=== PATIENT | female | born 1960 | race Caucasian/White ===

== ENCOUNTER 2019-05-07 23:36 | Inpatient (IN) | payer BC, OTHER ==
--- OUTSIDE RECORDS SUMMARY | 2019-05-07 23:38 | XMS REPORT ---
:1960 Author Organization [employer] Care Team Providers Name Role Phone Christen Galloway Provider Role Unavailable Allergies No Known Allergies Problems Problem Type Condition Code Onset Dates Condition Status Problem Osteoarthritis, multiple sites M15.9 Active Problem Hypothyroidism E03.9 Active Problem Osteopenia M85.80 Active Problem Pain in right leg M79.604 Active Problem Pain of left leg M79.605 Active Problem Family history of diabetes mellitus Z83.3 Active Problem Allergic rhinitis J30.9 Active Problem Asthma J45.909 Active Problem Dysuria R30.0 Active Problem Hyperlipidemia E78.5 Active Medications No Known Medications Results No Known Results Summary Purpose [employer]Clinical[employer] Submission
--- OUTSIDE RECORDS SUMMARY | 2019-05-07 23:38 | XMS REPORT ---
:1960 [facility] [address] [place]. [address] [place] [id number] Care Team Providers Name Role Phone Unavailable Unavailable Unavailable Problems This patient has no known problems. Allergies, Adverse Reactions, Alerts This patient has no known allergies or adverse reactions. Medications This patient has no known medications.
--- OUTSIDE RECORDS SUMMARY | 2019-05-07 23:38 | XMS REPORT ---
[...] Medications Results No Known Results Summary Purpose [employer] Submission
[2019-05-08] MEDS ORDERED: NA CHLORIDE 0.9% 2,000 ML ONE (00:22)
[2019-05-08] MEDS ORDERED: CEFTRIAXONE/SWI 1gm 1 GM/10 ML SYR ONE ×2 (00:38→00:48)
[2019-05-08] MEDS ORDERED: IBUPROFEN 200 MG TAB PO ONE (00:38)
[2019-05-08] MEDS ORDERED: ACETAMINOPHEN 500 MG TAB ONE (00:38)
[2019-05-08 00:39] LABS: Absolute Lymphocytes (CBC) 0.7 K/uL (0.7-4.9); Basophils % 0.6 % (0-1.3); Hematocrit 37.7 % (36.0-45.0); Lymphocytes % 10.7 % (15.3-44.8); MPV 10.5 fL (7.6-11.3); RBC Red Blood Cell Count 4.21 M/uL (3.86-4.86)
[2019-05-08 00:41] LABS: Protime INR 0.99
[2019-05-08] MEDS ORDERED: ONDANSETRON 4 MG/2 ML VIAL ONE (00:47)
[2019-05-08 00:54] LABS: ALT/SGPT 31 U/L (12-78); AST/SGOT 27 U/L (15-37); Albumin 4.2 g/dL (3.4-5.0); Alkaline Phosphatase 90 U/L (45-117); BUN Blood Urea Nitrogen 15 mg/dL (7-18); Bicarbonate 27 mmol/L (21-32); Bilirubin Direct < 0.1 mg/dL (0-0.2); Bilirubin Total 0.4 mg/dL (0.2-1.0); CKMB Creatine Kinase MB < 1.0 ng/mL (0.3-3.6); Creatine Phosphokinase 112 U/L (26-192); Glucose Level 115 mg/dL (74-106); Lipase 173 U/L (73-393); Potassium 3.7 mmol/L (3.5-5.1); Protein, Total 7.7 g/dL (6.4-8.2); Sodium Level 140 mmol/L (136-145); Troponin (Emerg Dept Use Only) < 0.02 ng/mL (0.0-0.045)
[2019-05-08] MEDS ORDERED: HYDROCODONE/CHLORPHEN 5 ML/OSYR ONE (01:38)
--- NOTE | 2019-05-08 02:14 | ER ---
Nurse's Notes [facility] Name: Adeline Byrne Age: 58 yrs Sex: Female : 1960 Arrival Date: 05/07/2019 Time: 23:39 Bed 17 Private MD: Diagnosis: Fever, unspecified;Dyspnea;Acute upper respiratory infection, unspecified;Dehydration;Vomiting Presentation: 05/07 23:57 Presenting complaint: Patient states: she started running fever today 102-103 has taken bb tylenol earlier tonight but has a headache, is coughing, has leg pains, and is vomiting, pt saw PCP May 27 and was supposed to start compounded RX of antibiotics and steroid but has not been able to get it filled yet. Transition of care: patient was not received from another setting of care. Onset of symptoms was May 07, 2019. Risk Assessment: Do you want to hurt yourself or someone else? Patient reports no desire to harm self or others. Initial Sepsis Screen: Does the patient meet any 2 criteria? Temp <36.0*C (96.8*F)) or > 38.3*C (100.9*F). HR > 90 bpm. Yes Does the patient have a suspected source of infection? Yes: Other: sinus infection. Care prior to arrival: None. 23:57 Method Of Arrival: Ambulatory bb 23:57 Acuity: ISIS 3 bb Historical: - Allergies: 05/08 00:06 Theophylline; bb 00:06 fluoroquinolones; bb - Home Meds: 00:06 levothyroxine 25 mcg tab 1 tab once daily [Active]; pantoprazole 40 mg oral TbEC 1 tab bb once daily [Active]; Claritin Oral [Active]; - PMHx: 00:06 Hernia; High Cholesterol; Hypothyroidism; bb - PSHx: 00:06 Hysterectomy; back surgery; sinus surgery x 4; left hip replacement; bb - Immunization history:: Adult Immunizations up to date. - Coronavirus screen:: The patient has NOT traveled to [place], [place], or [place] in the past 14 days. - Social history:: Smoking status: Patient denies any tobacco usage or history of. - Family history:: not pertinent. - Ebola Screening: : No symptoms or risks identified at this time. Screenin:16 Abuse screen: Denies threats or abuse. Nutritional screening: No deficits noted. fu Tuberculosis screening: No symptoms or risk factors identified. Fall Risk None identified. Assessment: 05/07 22:57 General: Appears distressed, uncomfortable, ill, Behavior is anxious, Reports chills fu for fever for feeling ill for fatigue for 1-2 days. Pain: Complains of pain in generalized pain Pain currently is 8 out of 10 on a pain scale. Neuro: Level of Consciousness is awake, alert, obeys commands, Oriented to person, place, time, situation, Shuttle Veneering Supervisor are equal bilaterally Moves all extremities. Reports headache weakness. Cardiovascular: Heart tones S1 S2. Respiratory: Reports cough that is non-productive, dry, hacking. GI: No signs and/or symptoms were reported involving the gastrointestinal system. : No signs and/or symptoms were reported regarding the genitourinary system. Musculoskeletal: No signs and/or symptoms reported regarding the musculoskeletal system. 05/08 00:00 EENT: Reports nasal discharge that is watery. fu 01:00 Reassessment: No changes from previously documented assessment. Patient and/or family fu updated on plan of care and expected duration. Pain level reassessed. Patient is alert, oriented x 3, equal unlabored respirations, skin warm/dry/pink. patient still complaining of cough and headache. 03:19 Reassessment: Patient and/or family updated on plan of care and expected duration. Pain fu level reassessed. Patient is alert, oriented x 3, equal unlabored respirations, skin warm/dry/pink. Dr. Tay in patient's room talking to the patient. Vital Signs: 00:06 BP 124 / 73; Pulse 114; Resp 18 S; Temp 103(O); Pulse Ox 96% on R/A; Weight 64.41 kg bb (R); Height 5 ft. 6 in. (167.64 cm) (R); Pain 8/10; 01:30 BP 109 / 57; Pulse 101; Resp 21; Temp 101.5; Pulse Ox 94% on R/A; Pain 7/10; fu 02:30 BP 102 / 54; Pulse 105; Resp 24; Pulse Ox 98% on R/A; fu 03:10 Temp 100.6(O); bb 00:06 Body Mass Index 22.92 (64.41 kg, 167.64 cm) bb ED Course: 05/07 23:39 Patient arrived in ED. [id number] 23:55 Selvin Murray MD is Attending Physician. [facility] 05/08 00:00 Triage completed. bb 00:06 Arm band placed on Patient placed in an exam room, on a stretcher, on pulse oximetry. bb Family accompanied patient. 00:30 Abebe Fox RN is Primary Nurse. fu 01:08 Chest Single View XRAY In Process Unspecified. EDMS 01:08 First set of blood cultures drawn by ED staff. Inserted saline lock: 18 gauge in left fu antecubital area, using aseptic technique. Blood collected. 02:11 Jacek Tay is Hospitalizing Provider. lon 03:17 Patient has correct armband on for positive identification. Bed in low position. Call fu light in reach. Side rails up X 1. 03:17 No provider procedures requiring assistance completed. fu 04:27 Patient admitted, IV remains in place. rv Administered Medications: 00:15 Drug: NS 0.9% (30 ml/kg) 30 ml/kg Route: IV; Rate: bolus; Site: left antecubital; fu 00:40 Drug: Rocephin 2 grams Route: IV; Rate: per protocol; Site: left antecubital; fu 00:42 Drug: Tylenol 1000 mg Route: PO; fu 00:42 Drug: Motrin 600 mg Route: PO; fu 01:38 Drug: Tussionex Pennkinetic ER 5 ml Route: PO; fu 01:39 Drug: Zofran 4 mg Route: IVP; Site: left antecubital; fu 02:27 Drug: Xopenex 1.25 mg Route: Inhalation; fu 02:27 Drug: AtroVENT Aerosol 0.5 mg Route: Inhalation; fu 02:31 Drug: Solu-CORTEF 100 mg Route: IVP; Site: left antecubital; fu 03:13 Drug: morphine 4 mg {Note: RASS 0.} Route: IVP; Site: left antecubital; rv Outcome: 02:12 Decision to Hospitalize by Provider. lon 04:26 Admitted to Med/surg accompanied by nurse, via wheelchair, room 229, with chart, Report rv called to ESTEBAN HUANG 04:26 Condition: good 04:26 Discharge instructions given to patient, family, Instructed on the need for admit, Demonstrated understanding of instructions. 04:27 Patient left the ED. rv Signatures: Dispatcher [employer] EDSelvin Diamond MD MD cha Ballard, Brenda RN Abebe Berger RN RN fu Vicente, Ronaldo, RN RN rv Gutierrez, Jessica [email or web address] Corrections: (The following items were deleted from the chart) 03:12 05/07 22:57 EENT: burak sumner
--- NOTE | 2019-05-08 02:15 | EDPHYS ---
Physician Documentation [facility] Name: Adeline Byrne Age: 58 yrs Sex: Female : 1960 Arrival Date: 05/07/2019 Time: 23:39 Bed 17 Private MD: ED Physician Selvin Murray HPI: 05/08 00:14 This 58 yrs old Female presents to ER via Ambulatory with complaints of Flu lon Symptoms. 00:14 The patient or guardian reports cough, difficulty breathing. Onset: The lon symptoms/episode began/occurred 3 day(s) ago. Modifying factors: The symptoms are alleviated by nothing. the symptoms are aggravated by nothing. The patient or guardian reports flu symptoms, arthralgias, low-grade fever, myalgias. Severity of symptoms: At their worst the symptoms were mild, moderate, in the emergency department the symptoms are unchanged. Associated signs and symptoms: The patient has no apparent associated signs or symptoms. Modifying factors: The symptoms are alleviated by nothing, the symptoms are aggravated by nothing. Severity of symptoms: At their worst the symptoms were moderate in the emergency department the symptoms are unchanged. Historical: - Allergies: 00:06 Theophylline; bb 00:06 fluoroquinolones; bb - Home Meds: 00:06 levothyroxine 25 mcg tab 1 tab once daily [Active]; pantoprazole 40 mg oral TbEC 1 tab bb once daily [Active]; Claritin Oral [Active]; - PMHx: 00:06 Hernia; High Cholesterol; Hypothyroidism; bb - PSHx: 00:06 Hysterectomy; back surgery; sinus surgery x 4; left hip replacement; bb - Immunization history:: Adult Immunizations up to date. - Coronavirus screen:: The patient has NOT traveled to [place], [place], or [place] in the past 14 days. - Social history:: Smoking status: Patient denies any tobacco usage or history of. - Family history:: not pertinent. - Ebola Screening: : No symptoms or risks identified at this time. ROS: 00:14 Eyes: Negative for injury, pain, redness, and discharge, Neck: Negative for injury, lon pain, and swelling, Cardiovascular: Negative for chest pain, palpitations, and edema, Abdomen/GI: Negative for abdominal pain, nausea, vomiting, diarrhea, and constipation, Back: Negative for injury and pain, : Negative for injury, bleeding, discharge, and swelling, MS/Extremity: Negative for injury and deformity, Skin: Negative for injury, rash, and discoloration, Neuro: Negative for headache, weakness, numbness, tingling, and seizure, Psych: Negative for depression, anxiety, suicide ideation, homicidal ideation, and hallucinations, Allergy/Immunology: Negative for hives, rash, and allergies, Endocrine: Negative for neck swelling, polydipsia, polyuria, polyphagia, and marked weight changes, Hematologic/Lymphatic: Negative for swollen nodes, abnormal bleeding, and unusual bruising. 00:14 Constitutional: Positive for body aches, chills, fatigue, fever. 00:14 Neck: Negative for pain with movement, pain at rest. 00:14 Respiratory: Positive for cough, with no reported sputum. Exam: 00:14 Head/Face: Normocephalic, atraumatic. Eyes: Pupils equal round and reactive to light, lon extra-ocular motions intact. Lids and lashes normal. Conjunctiva and sclera are non-icteric and not injected. Cornea within normal limits. Periorbital areas with no swelling, redness, or edema. ENT: Nares patent. No nasal discharge, no septal abnormalities noted. Tympanic membranes are normal and external auditory canals are clear. Oropharynx with no redness, swelling, or masses, exudates, or evidence of obstruction, uvula midline. Mucous membranes moist. Neck: Trachea midline, no thyromegaly or masses palpated, and no cervical lymphadenopathy. Supple, full range of motion without nuchal rigidity, or vertebral point tenderness. No Meningismus. Chest/axilla: Normal chest wall appearance and motion. Nontender with no deformity. No lesions are appreciated. Abdomen/GI: Soft, non-tender, with normal bowel sounds. No distension or tympany. No guarding or rebound. No evidence of tenderness throughout. Back: No spinal tenderness. No costovertebral tenderness. Full range of motion. Female : Normal external genitalia. Skin: Warm, dry with normal turgor. Normal color with no rashes, no lesions, and no evidence of cellulitis. MS/ Extremity: Pulses equal, no cyanosis. Neurovascular intact. Full, normal range of motion. Neuro: Awake and alert, GCS 15, oriented to person, place, time, and situation. Cranial nerves II-XII grossly intact. Motor strength 5/5 in all extremities. Sensory grossly intact. Cerebellar exam normal. Normal gait. Psych: Awake, alert, with orientation to person, place and time. Behavior, mood, and affect are within normal limits. 00:14 Constitutional: The patient appears febrile. 00:14 Cardiovascular: Rate: tachycardic, Rhythm: regular, Pulses: Pulses are 4+ in bilateral radial, brachial, femoral, popliteal, posterior tibial and and dorsalis pedis arteries.. Heart sounds: normal, Edema: is not appreciated, JVD: is not appreciated. 00:17 Neck: ROM/movement: is normal, no acute changes, pain, is not appreciated, limited lon range of motion, is not appreciated, Meningeal signs: are not present, Kernig's sign is negative, Brudzinski's sign is negative. 01:37 Neck: ROM/movement: nuchal rigidity, is not appreciated. [facility] Vital Signs: 00:06 BP 124 / 73; Pulse 114; Resp 18 S; Temp 103(O); Pulse Ox 96% on R/A; Weight 64.41 kg bb (R); Height 5 ft. 6 in. (167.64 cm) (R); Pain 8/10; 01:30 BP 109 / 57; Pulse 101; Resp 21; Temp 101.5; Pulse Ox 94% on R/A; Pain 7/10; fu 02:30 BP 102 / 54; Pulse 105; Resp 24; Pulse Ox 98% on R/A; fu 03:10 Temp 100.6(O); bb 00:06 Body Mass Index 22.92 (64.41 kg, 167.64 cm) MDM: 05/07 23:55 Patient medically screened. [facility] 05/08 00:17 Data reviewed: vital signs, nurses notes, lab test result(s), EKG, radiologic studies, [facility] plain films. 05/08 00:12 Order name: Urine Culture [facility] 05/08 00:12 Order name: Basic Metabolic Panel; Complete Time: :08 [facility] 05/08 00:12 Order name: Blood Culture Adult (2) [facility] 05/08 00:12 Order name: CBC with Diff; Complete Time: 01:08 [facility] 05/08 00:12 Order name: Ckmb; Complete Time: :08 [facility] 05/08 00:12 Order name: CPK; Complete Time: : [facility] 05/08 00:12 Order name: Lactate; Complete Time: :08 [facility] 05/08 00:12 Order name: LFT's; Complete Time: : [facility] 05/08 00:12 Order name: Lipase; Complete Time: :08 [facility] 05/08 00:12 Order name: Procalcitonin; Complete Time: 01:34 [facility] 05/08 00:12 Order name: Protime (+inr); Complete Time: :08 [facility] 05/08 00:12 Order name: Ptt, Activated; Complete Time: 01:08 [facility] 05/08 00:12 Order name: Troponin (emerg Dept Use Only); Complete Time: 01:08 [facility] 05/08 00:12 Order name: Urine Microscopic Only [facility] 05/08 00:12 Order name: Chest Single View XRAY [facility] 05/08 00:14 Order name: Strep; Complete Time: 01:34 [facility] 05/08 00:14 Order name: Flu; Complete Time: 01:34 [facility] 05/08 01:12 Order name: Throat Culture [facility] 05/08 03:11 Order name: CT Facial Bones W/ Con \T\ Mpr [facility] 05/08 00:12 Order name: Accucheck; Complete Time: 03:05 [facility] 05/08 00:12 Order name: Cardiac monitoring; Complete Time: :59 [facility] 05/08 00:12 Order name: EKG - Nurse/Tech; Complete Time: 02:32 [facility] 05/08 00:12 Order name: IV Saline Lock - Large Bore; Complete Time: 01:59 [facility] 05/08 00:12 Order name: Labs collected and sent; Complete Time: :59 [facility] 05/08 00:12 Order name: O2 Per Protocol; Complete Time: 01:59 [facility] 05/08 00:12 Order name: O2 Sat Monitoring; Complete Time: 02:00 [facility] Administered Medications: 00:15 Drug: NS 0.9% (30 ml/kg) 30 ml/kg Route: IV; Rate: bolus; Site: left antecubital; fu 00:40 Drug: Rocephin 2 grams Route: IV; Rate: per protocol; Site: left antecubital; fu 00:42 Drug: Tylenol 1000 mg Route: PO; fu 00:42 Drug: Motrin 600 mg Route: PO; fu 01:38 Drug: Tussionex Pennkinetic ER 5 ml Route: PO; fu 01:39 Drug: Zofran 4 mg Route: IVP; Site: left antecubital; fu 02:27 Drug: Xopenex 1.25 mg Route: Inhalation; fu 02:27 Drug: AtroVENT Aerosol 0.5 mg Route: Inhalation; fu 02:31 Drug: Solu-CORTEF 100 mg Route: IVP; Site: left antecubital; fu 03:13 Drug: morphine 4 mg {Note: RASS 0.} Route: IVP; Site: left antecubital; rv Disposition: 05/08/19 02:12 Hospitalization ordered by Jacek Tay for Inpatient Admission. Preliminary diagnosis are Fever, unspecified, Dyspnea, Acute upper respiratory infection, unspecified, Dehydration, Vomiting. - Bed requested for Telemetry/MedSurg (Inpatient). - Status is Inpatient Admission. rv - Condition is Fair. - Problem is new. - Symptoms have improved. Signatures: Dispatcher [employer] EDMS Selvin Murray MD MD cha Ballard, Brenda RN Siena Seymour RN RN Abebe Fox, SAL UHANG fu Obinna Hernandez RN RN rv Corrections: (The following items were deleted from the chart) 02:12 02:12 Hospitalization Ordered by Jacek Tay for Inpatient Admission. Preliminary [facility] diagnosis is Fever, unspecified; Dyspnea; Acute upper respiratory infection, unspecified; Dehydration. Bed requested for Telemetry/MedSurg (Inpatient). Status is Inpatient Admission. Condition is Fair. Problem is new. Symptoms have improved. [facility] 03:55 02:12 05/08/2019 02:12 Hospitalization Ordered by Jacek Tay for Inpatient cg Admission. Preliminary diagnosis is Fever, unspecified; Dyspnea; Acute upper respiratory infection, unspecified; Dehydration; Vomiting. Bed requested for Telemetry/MedSurg (Inpatient). Status is Inpatient Admission. Condition is Fair. Problem is new. Symptoms have improved. [facility] 04:27 03:55 05/08/2019 02:12 Hospitalization Ordered by Jacek Tay for Inpatient rv Admission. Preliminary diagnosis is Fever, unspecified; Dyspnea; Acute upper respiratory infection, unspecified; Dehydration; Vomiting. Bed requested for Telemetry/MedSurg (Inpatient). Status is Inpatient Admission. Condition is Fair. Problem is new. Symptoms have improved. cg
[2019-05-08] MEDS ORDERED: HYDROCORTISONE SUC 100 MG INJ ONE (02:25)
[2019-05-08] MEDS ORDERED: LEVALBUTEROL 1.25 MG/3 ML NEB ONE (02:25)
[2019-05-08] MEDS ORDERED: IPRATROPIUM BROM 0.5MG/2.5ML ONE (02:25)
[2019-05-08] MEDS ORDERED: MORPHINE 4 MG/ML SYR ONE (03:13)
--- NOTE | 2019-05-08 03:42 | P.HP ---
Certification for Inpatient Patient admitted to: Observation With expected LOS: <2 Midnights Practitioner: I am a practitioner with admitting privileges, knowledge of patient current condition, hospital course, and medical plan of care. Services: Services provided to patient in accordance with Admission requirements found in Title 42 Section 412.3 of the Code of Federal Regulations Patient History Date of Service: 05/08/19 Reason for admission: Fever and headache History of Present Illness: 58-year-old woman with a past medical history of hypothyroidism, GERD and hypercholesteremia presented to the emergency department with a complaint of fever, headache and cough of about 3 days duration. Cough is associated with nasal congestion, nasal stuffiness, and diarrhea. Patient report she has sinusitis, has been diagnosed with Pseudomonas infection in the sinus and she is supposed to start antibiotic for the infection. Fever up to 103 recorded in the ED. She was complaining of severe headache. CBC, no leukocytosis. Chest x -ray shows no acute disease. She tested negative for influenza and rapid strep B. I suspect acute viral syndrome causing patient's symptoms. She is placed under observation for further management. Allergies theophylline Allergy (Verified 05/08/19 05:03) feels sick fluoroquinolones Allergy (Uncoded 05/08/19 05:03) feels sick Home Medications: Levothyroxine [Synthroid*] 1 tab PO DAILY 05/08/19 Loratadine [Claritin*] 1 tab PO DAILY 05/08/19 Pantoprazole [Protonix Tab*] 1 tab PO DAILY 05/08/19 - Past Medical/Surgical History -: Hypothyroidism -: Hypercholesteremia - Family History Family History: Reviewed- Non-Contributory - Social History Alcohol use: No CD- Drugs: No Place of Residence: Home Review of Systems 10-point ROS is otherwise unremarkable Physical Examination - Physical Exam General: Alert, In no apparent distress, Oriented x3 HEENT: Normocephalic, Mucous membr. moist/pink, Sclerae nonicteric Neck: Supple, JVD not distended Respiratory: Clear to auscultation bilaterally, Normal air movement Cardiovascular: No edema, Regular rate/rhythm, Normal S1 S2 Capillary refill: <2 Seconds Gastrointestinal: Normal bowel sounds, Soft and benign, Non-distended, No tenderness Musculoskeletal: No swelling, No erythema Integumentary: No rashes Neurological: Normal speech, Normal strength at 5/5 x4 extr - Studies Laboratory Data (last 24 hrs) 05/08/19 00:17: PT 11.7, INR 0.99, APTT 32.4 05/08/19 00:09: WBC 6.1, Hgb 12.7, Hct 37.7, Plt Count 202 05/08/19 00:09: Sodium 140, Potassium 3.7, BUN 15, Creatinine 1.06, Glucose 115 H, Total Bilirubin 0.4, AST 27, ALT 31, Alkaline Phosphatase 90, Lipase 173 Microbiology Data (last 24 hrs): 05/08/19 00:45 Nasopharnyx Influenza Type A Antigen Screen - Final 05/08/19 00:45 Nasopharnyx Influenza Type B Antigen Screen - Final 05/08/19 00:45 Throat Group A Streptococcus Rapid Screen - Final Assessment and Plan - Problems (Diagnosis) (1) Acute viral syndrome Current Visit: Yes Status: Acute (2) Sinusitis Current Visit: Yes Status: Acute (3) Hypothyroidism Current Visit: Yes Status: Acute - Plan Place patient under observation. Supportive measures with IV hydration Pain management as needed Empiric antibiotics to cover Pseudomonas and atypical pneumonia. Will add Tamiflu Follow blood cultures. - Advance Directives Does patient have a Living Will: No Does patient have a Durable POA for Healthcare: No
[2019-05-08] MEDS ORDERED: ACETAMINOPHEN 500 MG TAB PO PRN (04:15)
[2019-05-08] MEDS ORDERED: MORPHINE 2 MG/ML SYR IV PRN (04:15)
[2019-05-08] MEDS ORDERED: ONDANSETRON 4 MG/2 ML VIAL IV PRN (04:15)
[2019-05-08] MEDS: NA CHLORIDE 0.9% 1,000 ML IV SCH ×2 (04:45→16:44)
[2019-05-08 04:53] VITALS: BMI 23.6
[2019-05-08] MEDS: ENOXAPARIN 40 MG/0.4 ML SQ SCH (09:00)
[2019-05-08] MEDS ORDERED: CEFEPIME 1 GM/VIAL IV SCH (09:00)
[2019-05-08] MEDS ORDERED: POTASSIUM CL SA 10 MEQ TAB PO ONE (09:00)
[2019-05-08] MEDS: CEFEPIME/SWI 1gm 10 ML IVP SCH ×2 (09:26→20:42)
[2019-05-08] MEDS: AZITHROMYCIN IV 500 MG in NA CHLORIDE 0.9% 250 ML IVPB SCH (09:26)
[2019-05-08] MEDS: OSELTAMIVIR 75 MG CAP PO SCH ×2 (09:27→20:42)
--- NOTE | 2019-05-08 11:10 | RAD REPORT ---
EXAM DESCRIPTION: CT - Facial Bones W/ Mpr - 05/08/2019 6:14 am CLINICAL HISTORY: 58-year-old female with fever and facial pain. TECHNIQUE: Axial CT of the facial bones was performed without intravenous contrast with sagittal and coronal reformatted images. The CT study is performed according to ALARA (as low as reasonably achie vable) or ALARA/IMAGE GENTLY, with automatic adjustment of mA and/or kV according to patient size. Performed on: 05/08/2019 at 4:44 AM Comparison: No prior studies were available for comparison.. FINDINGS: There are remote postsurgical changes of the paranasal sinuses consistent with bilateral n belinda antral windows. There has been partial bilateral ethmoidectomy and right middle turbinectomy. Th e uncinate processes appear surgically absent. There is trace mucosal thickening along the inferior r ight frontal sinus and trace mucosal thickening of the remaining ethmoid air cells. There is a sharply marginated lytic bone lesion with a thin sclerotic rim within the right hemimaxill a adjacent to the roots of the right maxillary second molar. There is discontinuity of the roof of th is lesion with extension of soft tissue into the inferior aspect of the right maxillary sinus. It is unclear if this represents an acute or chronic process. The thin sclerotic peripheral rim suggests th is is chronic in nature. There is no evidence of acute facial bone fracture. The orbital contents are unremarkable. The globes are intact bilaterally and appear symmetric. The intraconal fat is preserved. The extraocular muscle s and optic nerves appear symmetric. No focal soft tissue abnormalities are appreciated. The mastoid air cells and middle ear cavities are clear. The temporomandibular joints are intact. Both globes are intact and are symmetric. The extraocular muscles and optic nerves are symmetric. T he intraconal fat is preserved. There is no evidence of intraorbital emphysema. No focal soft tissue abnormalities are appreciated. No pathologic lymphadenopathy is seen. IMPRESSION: 1. Remote postsurgical changes of the paranasal sinuses as described above. 2. Sharply marginated lytic bone lesion with a thin sclerotic peripheral rim in the right hemimaxilla adjacent to the roots of the right maxillary second molar. There is discontinuity of the roof of thi s lesion with extension of soft tissue into the inferior aspect of the right maxillary sinus. Althoug h it is unclear if this represents an acute or chronic process, the presence of a thin sclerotic damion pheral rim suggest this is likely chronic in nature. Correlate clinically for focal pain in this shailesh on. 3. Trace mucosal thickening of the paranasal sinuses as described above. Electronically signed by: Anushka Melgar DO 05/08/2019 5:50 AM TELEMETRY MONITOR Due to temporary technical issues with the PACS/Fluency reporting system, reports are being signed by the in house radiologist as a courtesy to ensure prompt reporting. The interpreting radiologist is f ully responsible for the content of the report.
--- NOTE | 2019-05-08 12:48 | RAD REPORT ---
EXAM DESCRIPTION: Rickey Single View05/08/2019 1:07 am CLINICAL HISTORY: cough COMPARISON: 2016 FINDINGS: The lungs appear clear of acute infiltrate. The heart is normal size IMPRESSION: No acute abnormalities displayed
[2019-05-08] MEDS: IBUPROFEN 400 MG TAB PO PRN ×2 (14:15→19:47)
--- NOTE | 2019-05-08 17:17 | PN ---
Date of Progress Note: 05/08/2019 Subjective: Patient seen and examined. Chart reviewed and case discussed with RN. Patient appears acutely ill, in some mild distress, complaining of tenderness and soreness and headache in maxillary sinus on the right side. Has been afebrile overnight. Did have high fevers to 103 prior to admission. Medication List: Reviewed. Physical Examination: Vital Signs: Temperature 98, heart rate 89, blood pressure 103/55, respirations 20, T-max was 103 at midnight. General; Awake, alert, oriented x3. Ill appearing female. HEENT: NC/AT, PERRLA, EOMI, MMM, oropharynx is erythematous, normal dentition. Tenderness to palpation right maxillary sinus. CV; S1,S2, RRR Resp; CTA b/l no wheezing. Upper airway noise GI; Abdomen soft, NT/ND, + BS Ext no c/c/edema neuro non focal Laboratory Data: TSH is 0.752. Cultures are pending. Influenza screen negative. Group A strep rapid screen also negative. Throat culture is pending. CT facial sinus shows remote postsurgical changes of the paranasal sinuses as described above, sharply marginated lytic bone lesion with a thin sclerotic peripheral rim in the right lucia-maxilla adjacent to the roots of the right maxillary second molar, discontinuity of the roof of this lesion with extension of soft tissue into the inferior aspect of the right maxillary sinus, although unclear if represents acute on chronic process. Presence of a thin sclerotic peripheral rim suggests this is likely chronic in nature. Trace mucosal thickening of the paranasal sinuses as described above. No acute fractures. Assessment And Plan: A 58-year-old female with: 1. Acute viral syndrome. Patient is on Tamiflu prophylactically. 2. Acute on chronic sinusitis. Patient has had multiple infections of the sinus, has had multiple surgeries, was recently diagnosed with Pseudomonas. continue abx. ENT follow up 3. Hypothyroidism. We will continue Synthroid. TSH is normal. Plan: 1. We will continue IV antibiotics, IV fluids, Tamiflu. 2. DVT prophylaxis with Lovenox. Supportive care. Discharge once cultures are negative and patient is afebrile for greater than 24 hours. ADDENDUM; Still spiking high fevers. Increased cough, sputum production and sinus pain, pressure along with headache. Will need continued IV antibiotic treatment for pseudomonas infection. SA/MODL Voice ID: [id number] Report ID: [id number] FAMILIA
[2019-05-08] MEDS ORDERED: ACETAMINOPHEN 325 MG TABLET PO ONE (21:02)
[2019-05-08] MEDS ORDERED: ACETAMINOPHEN 500 MG TAB PO ONE (21:02)
[2019-05-09] MEDS: NA CHLORIDE 0.9% 1,000 ML IV SCH ×2 (03:12→15:46)
[2019-05-09] MEDS: LEVOTHYROXINE SOD 0.075 MG TAB PO SCH (05:54)
[2019-05-09 06:42] LABS: Absolute Lymphocytes (CBC) 1.2 K/uL (0.7-4.9); Basophils % 0.9 % (0-1.3); Hematocrit 29.5 % (36.0-45.0); Lymphocytes % 37.5 % (15.3-44.8); MPV 10.3 fL (7.6-11.3); RBC Red Blood Cell Count 3.25 M/uL (3.86-4.86)
[2019-05-09 07:06] LABS: Magnesium 2.1 mg/dL (1.8-2.4); Phosphorus 2.6 mg/dL (2.5-4.9); Potassium 4.1 mmol/L (3.5-5.1)
[2019-05-09] MEDS: PANTOPRAZOLE 40MG TABLET PO SCH (08:04)
[2019-05-09] MEDS: CEFEPIME/SWI 1gm 10 ML IVP SCH ×2 (08:04→20:16)
[2019-05-09] MEDS: OSELTAMIVIR 75 MG CAP PO SCH ×2 (08:04→20:13)
[2019-05-09] MEDS: LORATADINE 10 MG TAB PO SCH (08:04)
[2019-05-09] MEDS: AZITHROMYCIN IV 500 MG in NA CHLORIDE 0.9% 250 ML IVPB SCH (08:05)
[2019-05-09] MEDS: ENOXAPARIN 40 MG/0.4 ML SQ SCH (08:05)
[2019-05-09] MEDS: ACETAMINOPHEN 500 MG TAB PO PRN (09:34)
[2019-05-09] MEDS: MONTELUKAST 10 MG TAB PO SCH (11:56)
--- NOTE | 2019-05-09 13:38 | PN ---
Date of Progress Note: 05/09/2019 Subjective: Patient is seen and examined. Chart reviewed and case discussed with RN. Patient still having high fevers as high as 102.7 last night, having increased sputum production and continued max illary sinus pressure, pain, and headache. Medications: List reviewed. Physical Examination: Vital Signs: T current is 100.4, T-max was 102.7, heart rate 92, blood pressure 121/56, respirations 20, O2 of 95% on room air. General: Awake, alert, oriented x3, ill-appearing female, in mild distress. CV: S1, S2. Regular rate and rhythm. Peripheral pulses present. Respiratory: Moving air well bilaterally. No wheezing or stridor. Gastrointestinal: Abdomen is soft, nontender, nondistended. Positive bowel sounds. Extremities: No clubbing, cyanosis, or edema. Neurologic: Nonfocal. HEENT: Normocephalic, atraumatic. PERRLA. EOMI. Moist mucous membranes. Oropharynx is erythemato us. Patient has tenderness to palpation in the right maxillary sinus. Laboratory Data: Sodium 143, potassium 4.1, chloride 113, CO2 of 27, BUN 7, creatinine 0.75, glucose 95, calcium 8.3, phosphorus 2.6, magnesium 2.1. WBC 3.3, H and H 10 and 29.5, platelets 147. Assessment: 58-year-old female with: 1.Sepsis. Patient has elevated temperature of 102.7, has leukopenia and thrombocytopenia. Source o f infection is Pseudomonas aeruginosa from sinus culture. We will continue on IV antibiotics. Ree del angel had her lab report with her. Sensitivities were noted, sensitive to cefepime. Consider ENT evalu ation and CT scan. Patient's sinuses were reviewed yesterday, does show acute process in the inferio r aspect of the right maxillary sinus. 2.Acute viral syndrome. Continue Tamiflu prophylactically. 3.Hypothyroidism. Continue Synthroid and DVT prophylaxis with Lovenox. Plan: Patient is now beginning to develop sepsis, is leukopenic, has high fevers, will need to be mo nitored closely in order to prevent febrile neutropenia. Infectious Disease consultation. ENT consu ltation once available. Follow up on culture results. /HERBIE Voice ID: [id number] Report ID: [id number]
[2019-05-09] MEDS: IBUPROFEN 400 MG TAB PO PRN (18:23)
[2019-05-10] MEDS: NA CHLORIDE 0.9% 1,000 ML IV SCH ×3 (03:32→16:17)
[2019-05-10] MEDS: LEVOTHYROXINE SOD 0.075 MG TAB PO SCH (05:53)
[2019-05-10 06:12] LABS: Absolute Lymphocytes (CBC) 1.4 K/uL (0.7-4.9); Basophils % 1.2 % (0-1.3); Hematocrit 31.9 % (36.0-45.0); Lymphocytes % 54.5 % (15.3-44.8); MPV 10.4 fL (7.6-11.3); RBC Red Blood Cell Count 3.49 M/uL (3.86-4.86)
[2019-05-10 06:34] LABS: ALT/SGPT 27 U/L (12-78); AST/SGOT 32 U/L (15-37); Alkaline Phosphatase 65 U/L (45-117); BUN Blood Urea Nitrogen 6 mg/dL (7-18); Bicarbonate 30 mmol/L (21-32); Bilirubin Total 0.2 mg/dL (0.2-1.0); Glucose Level 83 mg/dL (74-106); Potassium 3.7 mmol/L (3.5-5.1); Protein, Total 6.3 g/dL (6.4-8.2); Sodium Level 143 mmol/L (136-145)
[2019-05-10 07:13] LABS: Blood Morphology Comment NOT SEEN (NOT SEEN); Platelet Estimate DECR; Urine White Blood Cell Casts OK
[2019-05-10] MEDS ORDERED: POTASSIUM CL SA 10 MEQ TAB PO ONE (09:00)
[2019-05-10] MEDS: ENOXAPARIN 40 MG/0.4 ML SQ SCH (09:00)
[2019-05-10] MEDS: LORATADINE 10 MG TAB PO SCH (09:00)
[2019-05-10] MEDS: OSELTAMIVIR 75 MG CAP PO SCH ×2 (09:00→22:23)
[2019-05-10] MEDS: PANTOPRAZOLE 40MG TABLET PO SCH (09:00)
[2019-05-10] MEDS: CEFEPIME/SWI 1gm 10 ML IVP SCH ×2 (09:24→22:23)
[2019-05-10] MEDS: MONTELUKAST 10 MG TAB PO SCH ×2 (09:25→10:32)
--- NOTE | 2019-05-10 09:26 | EKG ---
Test Date: 2019-05-08 Test Time: 02:11:05 Entertainer & Comic: CHRISTIANO MEASUREMENT RESULTS: Intervals: Rate: 104 MO: 150 QRSD: 78 QT: 336 QTc: 441 [place]: P: 59 MO: 150 QRS: 20 T: 57 INTERPRETIVE STATEMENTS: Sinus tachycardia Low voltage QRS Nonspecific ST abnormality Abnormal ECG Compared to ECG 09/17/2016 12:36:52 Low QRS voltage now present ST (T wave) deviation now present Sinus rhythm no longer present Electronically Signed On 05-10-19 09:25:39 [employer]IN[employer] by Ton Mendez
[2019-05-10] MEDS: AZITHROMYCIN IV 500 MG in NA CHLORIDE 0.9% 250 ML IVPB SCH (10:32)
--- NOTE | 2019-05-10 15:16 | PN ---
Date of Progress Note: 05/10/2019 Subjective: Patient seen and examined. Chart reviewed and case discussed with RN. Treatment plan e xplained. All questions answered. Patient somewhat upset and hearing the news about her lab results . Overall, clinically is significantly improved. Last fever was yesterday at 9:30 a.m. Medications list reviewed. Physical Examination: Vital Signs: Temperature 98.6, heart rate 73, blood pressure 127/63, respirations 15, O2 96% on room air. General: Awake, alert, oriented x3, in some mild distress. CV: S1, S2. Regular rate and rhythm. Respiratory: Moving air well bilaterally. Some upper airway noise heard. Gastrointestinal: Abdomen is soft, nontender, nondistended. Positive bowel sounds. Extremities: No clubbing, cyanosis, or edema. Neurologic: Nonfocal. HEENT: Normocephalic, atraumatic. PERRLA. EOMI. Moist mucous membranes. Erythema of the orophary nx is present. Patient has tenderness to palpation in the right maxillary sinus. Laboratory Data: Sodium 143, potassium 3.7, chloride 109, CO2 of 30, BUN 6, creatinine 0.67, glucose 83, calcium 8.4, albumin 3. WBC 2.6, H and H 10.7 and 31.9, platelets 142, neutrophils 30%, absolut e neutrophil count is 800. Blood cultures, no growth to date. Throat culture growing normal upper r espiratory laura. Assessment: A 58-year-old female with: 1.Sepsis, currently with leukopenia, has now been afebrile for at least 24 hours. Continue with IV antibiotics. We will obtain medical records from her ENT office for culture that shows Pseudomonas i nfection. ID has been consulted. 2.Neutropenia. White blood cell count continues to trend down and currently the patient has less th an 1000 neutrophils. We will need to monitor closely as patient has febrile neutropenia. 3.Acute viral syndrome. Continue Tamiflu prophylactically. 4.Hypothyroidism. Continue Synthroid. 5.Deep vein thrombosis prophylaxis, Lovenox. Plan: ID consultation. The patient can follow up with her ENT as an outpatient. Discharge once cli nically improved and neutropenia is resolved. SA/MODL Voice ID: [id number] Report ID: [id number]
--- NOTE | 2019-05-10 19:43 | CON ---
History Of Present Illness: Patient is a 58-year-old female with significant history of hypothyroidi sm, chronic sinus problems, GERD, hypercholesterolemia, presented to the emergency room with fever of 103, headaches, cough of 3 days. Patient was recently treated with Augmentin for 2 weeks for sinus infection. Her cultures from the sinuses shows patient has pseudomonas infection. Patient is curren tly being treated with the cefepime and Zithromax. Denies any other problem. Past Medical History: Chronic sinusitis; hypothyroidism; gastroesophageal reflux disease; hyperchole sterolemia; osteoarthritis, causing her to have 3 surgeries to the left hip, eventually hip replaceme nt in 2017; sinus surgery also done recently. Family History: Noncontributory. Medications: Cefepime and Zithromax. See MAR for other medications. Allergies: THEOPHYLLINE AND LEVAQUIN. Review of Systems: A 10-point review was performed. Physical Examination: General: This is a 58-year-old female, very pleasant to talk to, not in any acute cardiopulmonary di stress. Vital Signs: Temperature 98.9, pulse 86, respirations 17, blood pressure 126/63. HEENT: Unremarkable. Neck: Supple. Lungs: Basal crackles. Heart: S1, S2. Regular. Abdomen: Soft, nontender. Bowel sounds present. Extremities: No edema. Laboratory Data: WBC 2.6, hemoglobin 10.7, platelets 142. Chemistry shows sodium 143, potassium 3.7 , chloride 109, bicarb 30, BUN 6, creatinine 0.67, glucose 83, albumin is 3. Chest x-ray shows no ab normalities. Facial CT shows patient has remote postsurgical changes of the paranasal sinus. Sharpl y marginated lytic bone lesion with thin sclerotic peripheral rim in the right hemimaxilla adjacent t o the roots of the right maxillary secondary to smaller trace mucosal thickening of the paranasal sin uses. Micro data, no growth yet. Assessment And Plan: Patient is a 58-year-old, coming in with pancytopenia, viral versus medication. Continue cefepime as patient is growing pseudomonas from her sinus cultures. We will recommend to hold the Zithromax, total course of 2 weeks of cefepime. Consider getting a PICC line and continue c urrent treatment. Monitor for leukopenia and possible reverse isolation if neutrophil goes down belo w 500. We will also recommend to have her other medication reviewed by Pharmacy to see if there is a ny other medication we can stop, possibly pantoprazole, which might be also causing leukopenia. We w ill follow the patient closely. Thank you Dr. Castillo for consult. ELLEN/HERBIE Voice ID: [id number] Report ID: [id number]
[2019-05-10] MEDS: FAMOTIDINE 20 MG TAB PO SCH (22:23)
[2019-05-11] MEDS: NA CHLORIDE 0.9% 1,000 ML IV SCH ×2 (01:20→05:25)
[2019-05-11] MEDS: ACETAMINOPHEN 500 MG TAB PO PRN (01:35)
[2019-05-11] MEDS: LEVOTHYROXINE SOD 0.075 MG TAB PO SCH (05:25)
[2019-05-11 06:27] LABS: Absolute Lymphocytes (CBC) 1.7 K/uL (0.7-4.9); Basophils % 0.8 % (0-1.3); Hematocrit 34.7 % (36.0-45.0); RBC Red Blood Cell Count 3.83 M/uL (3.86-4.86)
[2019-05-11 06:49] LABS: BUN Blood Urea Nitrogen 7 mg/dL (7-18); Bicarbonate 29 mmol/L (21-32); Glucose Level 90 mg/dL (74-106); Magnesium 2.1 mg/dL (1.8-2.4); Phosphorus 3.4 mg/dL (2.5-4.9); Potassium 3.7 mmol/L (3.5-5.1); Sodium Level 139 mmol/L (136-145)
[2019-05-11] MEDS: LORATADINE 10 MG TAB PO SCH (08:37)
[2019-05-11] MEDS: FAMOTIDINE 20 MG TAB PO SCH (08:37)
[2019-05-11] MEDS: ENOXAPARIN 40 MG/0.4 ML SQ SCH (08:37)
[2019-05-11] MEDS: MONTELUKAST 10 MG TAB PO SCH (08:43)
[2019-05-11] MEDS ORDERED: POTASSIUM CL SA 10 MEQ TAB PO ONE (09:00)
[2019-05-11] MEDS ORDERED: LACTOBACILLUS/ACIDOPHILUS TAB PO SCH (09:00)
[2019-05-11 09:24] VITALS: O2SAT 96
[2019-05-11] MEDS: CEFEPIME/SWI 1gm 10 ML IVP SCH (09:33)
[2019-05-11 12:42] VITALS: BP 127/70; TEMP 98.1
[2019-05-11 13:09] LABS: C.diff Antigen/Toxin Ag neg : Tox neg (NEG : NEG)
--- NOTE | 2019-05-11 14:52 | P.DS ---
Admission Date: 05/08/19 Discharge Date: 05/11/19 Primary Care Provider: Nagi Galloway NP; ENT-Dr. Noriega Disposition: ROUTINE DISCHARGE Discharge Condition: GOOD Reason for Admission: Fever and headache Consultations: Infectious disease-Dr. Lincoln Procedures: CT scan: FINDINGS: There are remote postsurgical changes of the paranasal sinuses consistent with bilateral nasal antral windows. There has been partial bilateral ethmoidectomy and right middle turbinectomy. The uncinate processes appear surgically absent. There is trace mucosal thickening along the inferior right frontal sinus and trace mucosal thickening of the remaining ethmoid air cells. There is a sharply marginated lytic bone lesion with a thin sclerotic rim within the right hemimaxilla adjacent to the roots of the right maxillary second molar. There is discontinuity of the roof of this lesion with extension of soft tissue into the inferior aspect of the right maxillary sinus. It is unclear if this represents an acute or chronic process. The thin sclerotic peripheral rim suggests this is chronic in nature. There is no evidence of acute facial bone fracture. The orbital contents are unremarkable. The globes are intact bilaterally and appear symmetric. The intraconal fat is preserved. The extraocular muscles and optic nerves appear symmetric. No focal soft tissue abnormalities are appreciated. The mastoid air cells and middle ear cavities are clear. The temporomandibular joints are intact. Both globes are intact and are symmetric. The extraocular muscles and optic nerves are symmetric. The intraconal fat is preserved. There is no evidence of intraorbital emphysema. No focal soft tissue abnormalities are appreciated. No pathologic lymphadenopathy is seen. IMPRESSION: 1. Remote postsurgical changes of the paranasal sinuses as described above. 2. Sharply marginated lytic bone lesion with a thin sclerotic peripheral rim in the right hemimaxilla adjacent to the roots of the right maxillary second molar. There is discontinuity of the roof of this lesion with extension of soft tissue into the inferior aspect of the right maxillary sinus. Although it is unclear if this represents an acute or chronic process, the presence of a thin sclerotic peripheral rim suggest this is likely chronic in nature. Correlate clinically for focal pain in this region. 3. Trace mucosal thickening of the paranasal sinuses as described above. CXR: COMPARISON: 2017 FINDINGS: The lungs appear clear of acute infiltrate. The heart is normal size IMPRESSION: No acute abnormalities displayed Medical Problem List: Sepsis with leukopenia likely related to acute viral syndrome Chronic sinusitis with recent sinus culture positive for Pseudomonas Hypothyroidism Brief History of Present Illness: 58-year-old female presented with fever, chills, headaches and cough. Patient recently saw her ENT specialist. She had been given antibiotic nasal rinses due to sinus culture positive for Pseudomonas. She had yet to start antibiotic therapy. Patient was evaluated in the emergency room. Influenza test negative. Patient had fever, tachypnea. Sepsis was suspected. Patient was admitted for further evaluation and treatment. Hospital Course: Patient presented with fever, headache, and cough. This was related to acute viral syndrome. Sepsis was suspected. Patient recently seen by ENT. Wound culture done April 28 was positive for Pseudomonas. Patient was to start antibiotic nasal rinses but her symptoms worsened. Patient was admitted for further treatment. Patient was seen by infectious disease as well. Patient had some neutropenia. Influenza test negative. During the course of her stay, the patient was given Tamiflu prophylactically due to her viral illness. She was also treated with IV cefepime due to her recent cultures related to her sinuses. At discharge patient without any headache, dizziness, or fever. White count improved. Patient is asymptomatic at this time. Case discussed at length with ENT and Infectious Disease. No need for IV antibiotic therapy at this time. At discharge patient will go home. She will continue with gentamicin nasal rinses as recommended by ENT for the next month. Recommend follow up with ENT in 2 weeks to follow up this hospitalization. If her condition changes then the patient will need a follow up with her PCP for possible PICC line placement and IV antibiotic therapy. This was discussed in detail with the patient, ENT and Infectious Disease. Recommend to recheck CBC in 1 week to monitor her progress. Patient with history of hypothyroidism. At discharge she will continue with her medication. Patient also with history of GERD. She will continue with her medication. Vital Signs/Physical Exam: Temp Pulse Resp BP Pulse Ox 98.1 F 80 18 127/70 97 05/11/19 12:00 05/11/19 12:05/11/19 12:00 05/11/19 12:05/11/19 12:00 General: Alert, In no apparent distress, Oriented x3, Cooperative HEENT: Atraumatic Neck: Supple Respiratory: Clear to auscultation bilaterally, Normal air movement Cardiovascular: Normal pulses, Regular rate/rhythm Gastrointestinal: Normal bowel sounds, Soft and benign, Non-distended, No tenderness, No masses, No rebound, No guarding Musculoskeletal: No erythema, No tenderness, No warmth Integumentary: No tenderness/swelling, No erythema, No warmth, No cyanosis Neurological: Normal speech, Normal strength at 5/5 x4 extr, Normal tone, Normal affect Laboratory Data at Discharge: WBC 2.9 K/uL (4.3-10.9) L 05/11/19 06:06 Hgb 12.0 g/dL (12.0-15.0) 05/11/19 06:06 Hct 34.7 % (36.0-45.0) L 05/11/19 06:06 Plt Count 142 K/uL (152-406) L 05/11/19 06:06 PT 11.7 SECONDS (9.5-12.5) 05/08/19 00:17 INR 0.99 05/08/19 00:17 APTT 32.4 SECONDS (24.3-36.9) 05/08/19 00:17 Sodium 139 mmol/L (136-145) 05/11/19 06:06 Potassium 3.7 mmol/L (3.5-5.1) 05/11/19 06:06 BUN 7 mg/dL (7-18) 05/11/19 06:06 Creatinine 0.64 mg/dL (0.55-1.3) 05/11/19 06:06 Glucose 90 mg/dL (74-106) 05/11/19 06:06 Phosphorus 3.4 mg/dL (2.5-4.9) 05/11/19 06:06 Magnesium 2.1 mg/dL (1.8-2.4) 05/11/19 06:06 Total Bilirubin 0.2 mg/dL (0.2-1.0) 05/10/19 05:50 AST 32 U/L (15-37) 05/10/19 05:50 ALT 27 U/L (12-78) 05/10/19 05:50 Alkaline Phosphatase 65 U/L (45-117) 05/10/19 05:50 Lipase 173 U/L (73-393) 05/08/19 00:09 Home Medications: Levothyroxine [Synthroid*] 1 tab PO DAILY 05/08/19 Loratadine [Claritin*] 1 tab PO DAILY 05/08/19 Pantoprazole [Protonix Tab*] 1 tab PO DAILY 05/08/19 Lactobacillus Acidophilus [Probiotic] 1 each PO TID #90 capsule 05/11/19 New Medications: Lactobacillus Acidophilus [Probiotic] 1 each PO TID #90 capsule Patient Discharge Instructions: 1. Recommend follow up with her PCP in 1 week to follow up this hospitalization. 2. Patient presented with fever, headache, and cough. This was related to acute viral syndrome. Sepsis was suspected. Patient recently seen by ENT. Wound culture done April 28 was positive for Pseudomonas. Patient was to start antibiotic nasal rinses but her symptoms worsened. Patient was admitted for further treatment. Patient was seen by infectious disease as well. Patient had some neutropenia. Influenza test negative. During the course of her stay, the patient was given Tamiflu prophylactically due to her viral illness. She was also treated with IV cefepime due to her recent cultures related to her sinuses. At discharge patient without any headache, dizziness, or fever. White count improved. Patient is asymptomatic at this time. Case discussed at length with ENT and Infectious Disease. No need for IV antibiotic therapy at this time. At discharge patient will go home. She will continue with gentamicin nasal rinses as recommended by ENT for the next month. Recommend follow up with ENT in 2 weeks to follow up this hospitalization. If her condition changes then the patient will need a follow up with her PCP for possible PICC line placement and IV antibiotic therapy. This was discussed in detail with the patient, ENT and Infectious Disease. Recommend to recheck CBC in 1 week to monitor her progress. 3. Patient with history of hypothyroidism. At discharge she will continue with her medication. 4. Patient also with history of GERD. She will continue with her medication. 5. Patient will continue with pro biotics 3 times a day. 6. Encourage oral intake. Diet: AHA Activity: Ad lalito Time spent managing pt's care (in minutes): 55
== END 2019-05-11 16:30 | disposition home or self-care (01) | DRG 872 ==
LOC: ER 23:36 → ERHOLD 05-08 03:47 → OBSVTOIN 05-08 03:47 → 2ND 05-08 04:10
PROVIDERS: ADMIT Internal Medicine; ATTEND Internal Medicine
DX: A41.9 Sepsis, unspecified organism (principal); B34.9 Viral infection, unspecified; E03.9 Hypothyroidism, unspecified; K21.9 Gastro-esophageal reflux disease without esophagitis; E78.00 Pure hypercholesterolemia, unspecified; J32.9 Chronic sinusitis, unspecified; B96.5 Pseudomonas (aeruginosa) (mallei) (pseudomallei) as the cause of diseases classified elsewhere; Z96.642 Presence of left artificial hip joint
CPT/HCPCS: 36415; 70486; 71045; 76377; 80048; 80053; 80076; 82550; 82553; 83605; 83690; 83735; 84100; 84145; 84443; 84484; 85025; 85610; 85730; 87040; 87070; 87081; 87324; 87449; 87804; 93005; 94760; 96374; 96375; 99285; J0456; J0692; J0696; J1650; J1720; J2270; J2405; J7030

== ENCOUNTER 2020-08-24 13:30 | Emergency (ER) | payer BC ==
--- OUTSIDE RECORDS SUMMARY | 2020-08-24 13:33 | XMS REPORT | Continuity of Care Document ---
:1960 Author Organization [facility] t Address [address] [place] [address] Care Team Providers Name Role Phone PHYSICIAN Primary Care Physician Unavailable Payers Payer Name Policy Type Policy Number Effective Date Expiration Date S ource [place] POS [id number] 2018 00:00:00 Problems Condition Condition Condition Status Onset Resolution Last Treating Co mments Source Name Details Category Date Date Treatment Clinician Date Diverticul Diverticul Disease Active [place] osis of osis of 07-11 [facility] large large 00:00: st intestine intestine 00 Primary Primary Disease Active [place] osteoarthr osteoarthr -13 Me thodi itis itis 00:00: st involving involving 00 multiple multiple joints joints Right Right Disease Active [place] ankle pain ankle pain -13 Me thodi 00:00: st 00 Degenerati Degenerati Disease Active [place] ve tear of ve tear of -13 Me thodi acetabular acetabular 00:00: st labrum of labrum of 00 left hip left hip Acute Acute Disease Active [place] recurrent recurrent 07-11 Meth beverly maxillary maxillary 00:00: st sinusitis sinusitis 00 Erythema Erythema Disease Active [place] nodosum nodosum -13 Methodi 00:00: st 00 Bilateral Bilateral Disease Active Clarice ston deafness deafness -13 Method i 00:00: st 00 Hypothyroi Hypothyroi Disease Active [place] dism dism Methodi st Irritable Irritable Disease Active Clarice ston bowel bowel [facility] syndrome syndrome st Allergies, Adverse Reactions, Alerts Allergy Allergy Status Severity Reaction(s) Onset Inactive Treating Comm ents Source Name Type Date Date Clinician Nsaids Propensi Active [place] (Non-Jose Alberto ty to 4-18 [facility] roidal adverse 00:00: st Anti-Inf reaction 00 lammator s to y Drug) drug Theophyl Propensi Active Shortness Of [place] line ty to Breath 4-13 Methodi adverse 00:00: st reaction 00 s to drug Theophyl Adverse Active "regurgitate C [facility] line Reaction [facility] Cipro Adverse Active elevated bp [facility] Family History Family Member Diagnosis Comments Start Date Stop Date Source Natural father Alcohol abuse [employer] Natural father Heart disease [place] [facility] Natural mother Osteoarthritis [place] [employer] Social History Social Habit Start Date Stop Date Quantity Comments Source Tobacco use and 2016-07-11 2016-07-11 Never used [facility] ethodist exposure 00:00:00 00:00:00 Alcohol intake 2016-07-11 2016-07-11 Current [facility] thodist 00:00:00 00:00:00 non-drinker of alcohol (finding) Sex Ass[birth year] [facility] ethodist 00:00:00 00:00:00 Smoking Status Start Date Stop Date Source Never smoker [place] Steve t Medications Ordered Filled Start Stop Current Ordering Indication Dosage Frequency Signature Comments Components Source Medication Medication Date Date Medication? Clinician (SIG) Name Name Lovastatin Lovastatin Yes Christen [address] 2-11 [place] with [facility] 00[facility]: evening [facility] 00 meal l [facility] levothyroxi Yes 75ug QD Take 75 Clarice ston ne 4-13 mcg by [facility] (SYNTHROID, 14:32: mouth st LEVOXYL) 75 25 every mcg tablet morning. pantoprazol Yes 40mg QD Take 40 mg [place] e 4-13 by mouth [facility] (PROTONIX) 14:32: daily. st 40 MG EC 25 tablet estradiol Yes .5mg QD Take 0.5 [place] (ESTRACE) 4-13 mg by [facility] 0.5 MG 14:32: mouth st tablet 25 daily. acetaminoph 2017-0 Yes 500mg Q6H Take 500 [place] en 4-13 mg by [facility] (TYLENOL) 14:32: mouth st 500 MG 25 every 6 tablet (six) hours as needed for mild pain. ibuprofen 2017- Yes 200mg Q6H Take 200 Clarice ston (ADVIL,MOTR 4-13 mg by [facility] IN) 200 MG 14:32: mouth st tablet 25 every 6 (six) hours as needed for mild pain. Procedures This patient has no known procedures. Plan of Care Planned Activity Planned Date Details Comments Source Future Scheduled 2020-10-29 INFLUENZA VACCINE [place] [employer] Test 00:00:00 [code = INFLUENZA VACCINE] Future Scheduled 2012 BREAST CANCER [facility] Test 00:00:00 SCREENING [code = BREAST CANCER SCREENING] Future Scheduled 2012 COLONOSCOPY SCREENING [place] [facility] Test 00:00:00 [code = COLONOSCOPY SCREENING] Future Scheduled 2012 SHINGLES VACCINES [place] [employer] Test 00:00:00 (#1) [code = SHINGLES VACCINES (#1)] Future Scheduled 1983-09-11 Screening for [facility] thodist Test 00:00:00 malignant neoplasm of cervix (procedure) [code = 077255667] Future Scheduled 1974 COVID-19 VACCINE (1) [facility] st[facility] Test 00:00:00 [code = COVID-19 VACCINE (1)] Encounters Start End Encounter Admission Attending Care Care Encounter Source Date/Time Date/Time Type Type Clinicians Facility Department ID 2020-08-05 2020-08-05 Outpatient [facility] [id number] 10:20:05 10:20:05 Tobinanirudh guzman 2020-08-01 2020-08-01 Outpatient [facility] [id number] [facility] 2020-07-31 2020-07-31 [facility] [id number] [facility] 2020-02-01 2020-02-01 [facility] [id number] 2020-01-31 2020-01-31 [facility] [id number] [facility] 2019-08-30 2019-08-30 [facility] [id number] 13:11:00 13:11:00 t [facility] Outpat[facility] Clinics 2019-06-08 2019-06-08 [facility] [id number] 08:19:00 08:19:00 t [facility] Medicine Outpati ent Clinics 2019-06-02 2019-06-02 [facility] [id number] 13:00:00 13:00:00 t [facility] Medicine Outpati ent Clinics 2019-05-20 2019-05-20 [facility] [id number] 08:46:00 08:46:00 t [facility] Medicine Outpati ent Clinics 2019-05-18 2019-05-18 [facility] [id number] 13:20:00 13:20:00 t [facility] Medicine Outpati ent Clinics 2019-03-01 2019-03-01 [facility] [id number] 09:13:00 09:13:00 t [facility] Medicine Outpati ent Clinics 2018-12-21 2018-12-21 [facility] [id number] 13:28:00 13:28:00 t flux - neutrinity [facility] Medicine Outpati ent Clinics 2018-12-09 2018-12-09 [facility] [id number] 16:58:00 16:58:00 t [facility] Medicine Outpati ent Clinics 2018-12-09 2018-12-09 [facility] [id number] 16:17:00 16:17:00 t [facility] Medicine Outpati ent Clinics 2018-12-09 2018-12-09 Outpatient Juliet Coffman [id number] 16:12:00 16:12:00 [facility] 2018-12-02 2018-12-02 Outpatient Juliet Coffman [id number] [facility] St 10:20:00 10:20:00 [facility] ent Clinics Results This patient has no known results.
--- NOTE | 2020-08-24 15:07 | RAD REPORT ---
EXAM DESCRIPTION: US - Extremity Nonvascular Limited - 08/24/2020 2:42 pm CLINICAL HISTORY: mass under left breast;Pain COMPARISON: No comparisons FINDINGS: Patient details a tender linear palpable mass inferior margin of the left breast near the inframammary fold. No skin or subcutaneous thickening or edema identifiable. The subcutaneous breast fatty tissue in the subcutaneous fatty tissue of the chest wall show normal echogenicity. The deeper chest wall musculat ure also unremarkable. No solid or cystic mass. No sonographic correlate for the patient's area of pa lpable and tender tissue. IMPRESSION: Negative ultrasound of the inferior left breast and chest soft tissues as detailed. No c orrelate to the patient palpable finding.
--- NOTE | 2020-08-24 15:19 | ER ---
Nurse's Notes [facility] Name: Adeline Byrne Age: 59 yrs Sex: Female : 1960 Arrival Date: 08/24/2020 Time: 13:33 Bed 2 Private MD: Diagnosis: Pain beneath left breast Presentation: 08/24 13:47 Chief complaint: Patient states: pain under left breast, pt states she feel a "lump" sv under her breasts and the pain is worse with movement for the past 3 days. Coronavirus screen: Client denies travel out of the [place] in the last 14 days. At this time, the client does not indicate any symptoms associated with coronavirus-19. Ebola Screen: No symptoms or risks identified at this time. Risk Assessment: Do you want to hurt yourself or someone else? Patient reports no desire to harm self or others. Onset of symptoms was August 21, 2020. 13:47 Method Of Arrival: Ambulatory sv 13:47 Acuity: ISIS 3 sv 14:02 Initial Sepsis Screen: Does the patient meet any 2 criteria? No. Patient's initial hb sepsis screen is negative. Does the patient have a suspected source of infection? No. Patient's initial sepsis screen is negative. Triage Assessment: 13:51 General: Appears in no apparent distress. uncomfortable, Behavior is calm, cooperative, sv appropriate for age. Pain: Complains of pain in left breast. Neuro: Level of Consciousness is awake, alert, obeys commands, Oriented to person, place, time, situation, Gait is steady. Respiratory: Respiratory effort is even, unlabored. Historical: - Allergies: 13:51 fluoroquinolones; sv 13:51 Theophylline; sv - PMHx: 13:51 Hernia; High Cholesterol; Hypothyroidism; sv 13:52 HOONAH; sv - PSHx: 13:51 Hysterectomy; back surgery; left hip replacement; sinus surgery x 4; sv - Immunization history:: Client reports receiving the 1st dose of the Covid vaccine. - Social history:: Smoking status: Patient denies any tobacco usage or history of. Screenin:02 Abuse screen: Denies threats or abuse. Denies injuries from another. Nutritional hb screening: No deficits noted. Tuberculosis screening: No symptoms or risk factors identified. Fall Risk None identified. Assessment: 13:55 General: Appears in no apparent distress. Behavior is calm, cooperative. Pain: Pain hb currently is 4 out of 10 on a pain scale. Neuro: Level of Consciousness is awake, alert, obeys commands, Oriented to person, place, time, situation. Cardiovascular: Patient's skin is warm and dry. Respiratory: Respiratory effort is even, unlabored, Respiratory pattern is regular, symmetrical. GI: No signs and/or symptoms were reported involving the gastrointestinal system. : No signs and/or symptoms were reported regarding the genitourinary system. EENT: No signs and/or symptoms were reported regarding the EENT system. Derm: Skin is pink, warm \\T\\ dry. Musculoskeletal: Reports left breast pain. 14:38 Reassessment: Patient appears in no apparent distress at this time. Patient and/or hb family updated on plan of care and expected duration. Pain level reassessed. Patient is alert, oriented x 3, equal unlabored respirations, skin warm/dry/pink. 15:20 Reassessment: Patient appears in no apparent distress at this time. Patient and/or hb family updated on plan of care and expected duration. Pain level reassessed. Patient is alert, oriented x 3, equal unlabored respirations, skin warm/dry/pink. Vital Signs: 13:47 BP 170 / 83; Pulse 92; Resp 16; Pulse Ox 99% ; Weight 61.69 kg; Height 5 ft. 5 in. sv (165.10 cm); Pain 4/10; 13:47 Body Mass Index 22.63 (61.69 kg, 165.10 cm) sv ED Course: 13:33 Patient arrived in ED. ds1 13:40 Bonnie Eaton FNP-C [facility]. kb 13:40 Dominick Caro MD is Attending Physician. kb 13:51 Triage completed. sv 13:51 Arm band placed on. sv 13:52 Saqib Cardona, RN is Primary Nurse. em 14:01 Primary Nurse role handed off by Saqib Cardona RN hb 14:01 Marge Howell, SAL is Primary Nurse. hb 14:02 Patient has correct armband on for positive identification. Bed in low position. Call hb light in reach. Side rails up X 1. 14:37 US Extrmty Nonvasular Limited In Process Unspecified. EDMS 15:20 No provider procedures requiring assistance completed. Patient did not have IV access hb during this emergency room visit. Administered Medications: No medications were administered Outcome: 15:19 Discharge ordered by . monisha 15:20 Discharged to home ambulatory, with family. hb 15:20 Condition: stable 15:20 Discharge instructions given to patient, Instructed on discharge instructions, follow up and referral plans. medication usage, Demonstrated understanding of instructions, follow-up care, medications, Prescriptions given X 1. 15:29 Patient left the ED. hb Signatures: Dispatcher [employer] EDUT Bonnie Eaton, SCIENTIFIC INFORMATICS LEADER-C SCIENTIFIC INFORMATICS LEADER-Vania Jones, RN RN Saqib Castro, RN RN Aletha Garcia ds1 Marge Howell, SAL RN hb
--- NOTE | 2020-08-24 15:19 | EDPHYS ---
Physician Documentation [facility] Name: Adeline Byrne Age: 59 yrs Sex: Female : 1960 Arrival Date: 08/24/2020 Time: 13:33 Bed 2 Private MD: ED Physician Dominick Caro HPI: 08/24 21:57 This 59 yrs old Female presents to ER via Ambulatory with complaints of Pain kb Under Breast. 21:57 the patient presents with a swollen area of the beneath left breast. Description: kb swollen. Onset: The symptoms/episode began/occurred 4 day(s) ago. Possible cause(s): unknown. Associated signs and symptoms: Pertinent positives: tenderness. Modifying factors: the symptoms are alleviated by nothing, the symptoms are aggravated by movement, pressure. Severity of symptoms: At their worst the symptoms were moderate, in the emergency department the symptoms are unchanged. The patient has not experienced similar symptoms in the past. The patient has not recently seen a physician. Pt reports painful mass that she noticed 4 days ago. pain with palpation and with movement. No redness, warmth or fever. Historical: - Allergies: 13:51 fluoroquinolones; sv 13:51 Theophylline; sv - PMHx: 13:51 Hernia; High Cholesterol; Hypothyroidism; sv 13:52 U[place]UM[place]UT; sv - PSHx: 13:51 Hysterectomy; back surgery; left hip replacement; sinus surgery x 4; sv - Immunization history:: Client reports receiving the 1st dose of the Covid vaccine. - Social history:: Smoking status: Patient denies any tobacco usage or history of. ROS: 21:56 Constitutional: Negative for fever, chills, and weight loss. kb 21:56 Skin: Positive for of the beneath left breast, tenderness, mass. 21:56 All other systems are negative. Exam: 21:56 Constitutional: This is a well developed, well nourished patient who is awake, alert, kb and in no acute distress. Head/Face: Normocephalic, atraumatic. ENT: Moist Mucous membranes Cardiovascular: Regular rate and rhythm with a normal S1 and S2. No gallops, murmurs, or rubs. No pulse deficits. Respiratory: Respirations even and unlabored. No increased work of breathing, no retractions or nasal flaring. Abdomen/GI: Soft, non-tender. No distention MS/ Extremity: Pulses equal, no cyanosis. Neurovascular intact. Full, normal range of motion. Neuro: Awake and alert, GCS 15, oriented to person, place, time, and situation. Moves all extremities. Normal gait. Psych: Awake, alert, with orientation to person, place and time. Behavior, mood, and affect are within normal limits. 21:56 Skin: tenderness and mass beneath left breast. Vital Signs: 13:47 BP 170 / 83; Pulse 92; Resp 16; Pulse Ox 99% ; Weight 61.69 kg; Height 5 ft. 5 in. sv (165.10 cm); Pain 4/10; 13:47 Body Mass Index 22.63 (61.69 kg, 165.10 cm) sv MDM: 13:40 Patient medically screened. kb 15:22 Data reviewed: vital signs, nurses notes. Data interpreted: Pulse oximetry: on room air kb is 99 %. Interpretation: normal. 15:24 Counseling: I had a detailed discussion with the patient and/or guardian regarding: the kb historical points, exam findings, and any diagnostic results supporting the discharge/admit diagnosis, radiology results, the need for outpatient follow up, a family practitioner, to return to the emergency department if symptoms worsen or persist or if there are any questions or concerns that arise at home. 08/24 13:47 Order name: US Jai Cheney Limited; Complete Time: 15:09 kb Administered Medications: No medications were administered Disposition: 15:52 Co-signature as Attending Physician, Dominick Caro MD I agree with the assessment and kdr plan of care. Disposition: 08/24/20 15:19 Discharged to Home. Impression: Pain beneath left breast. - Condition is Stable. - Discharge Instructions: Musculoskeletal Pain. - Prescriptions for Diclofenac Sodium 75 mg Oral Tablet, Delayed Release (E.C.) - take 1 tablet by ORAL route 2 times per day As needed; 30 tablet. - Medication Reconciliation Form, Thank You Letter, Antibiotic Education, Prescription Opioid Use form. - Follow up: Emergency Department; When: As needed; Reason: Worsening of condition. Follow up: Private Physician; When: 2 - 3 days; Reason: Recheck today's complaints, Continuance of care, Re-evaluation by your physician. Signatures: Dispatcher [facility] Bonnie Deras FNP-C FNP-Ckb Vania Holland, RN RN Dominick Caro MD MD [facility] Marge Howell, SAL RN hb Corrections: (The following items were deleted from the chart) 15:29 15:19 08/24/2020 15:19 Discharged to Home. Impression: Pain beneath left breast. hb Condition is Stable. Forms are Medication Reconciliation Form, Thank You Letter, Antibiotic Education, Prescription Opioid Use. Follow up: Emergency Department; When: As needed; Reason: Worsening of condition. Follow up: Private Physician; When: 2 - 3 days; Reason: Recheck today's complaints, Continuance of care, Re-evaluation by your physician. kb 22:00 21:57 Pt reports painful mass that she noticed 4 days ago. pain with palpation and with kb movement. kb
[2020-08-24 15:40] VITALS: BP 170/83; O2SAT 99
== END 2020-08-24 15:29 | disposition home or self-care (01) ==
LOC: ER 13:30
DX: N64.4 Mastodynia (principal); N63.20 Unspecified lump in the left breast, unspecified quadrant; Z88.8 Allergy status to other drugs, medicaments and biological substances
CPT/HCPCS: 76882; 99283